=== PATIENT | female | born 1960 | race Caucasian/White ===

== ENCOUNTER 2018-07-03 10:26 | Inpatient (IN) | payer BC ==
[~2018-07-03] VITALS: Ht 162.6 cm; Wt 105.2 kg
[2018-07-03] MEDS ORDERED: CEFAZOLIN SOD 1 GM/ ISO 50 ML PREMIX IV ONE (10:45)
[2018-07-03] MEDS ORDERED: CEFAZOLIN SOD 2 GM in D5W 50 ML IV ONE (11:45)
[2018-07-03] MEDS ORDERED: POLYMYXIN 500,000/BACIT.10,000 UNITS in NS IRR 1 L IR ONE (12:02)
[2018-07-03] MEDS ORDERED: LR 1,000 ML IV SCH (13:06)
[2018-07-03] MEDS ORDERED: HYDROmorphone 2 MG/ML VIAL IVP PRN ×2 (13:15)
[2018-07-03] MEDS ORDERED: HYDROmorphone 1 MG INJ. 1 MG/ML AMPUL IVP PRN ×2 (13:15→17:00)
[2018-07-03] MEDS ORDERED: MEPERIDINE HCL/PF 25 MG/ML DISP.SYRIN IVP PRN (13:15)
[2018-07-03] MEDS ORDERED: ONDANSETRON HCL 4 MG/2 ML VIAL IVP PRN (14:00)
[2018-07-03] MEDS ORDERED: ACETAMINOPHEN 325 MG TABLET PO PRN (14:00)
[2018-07-03] MEDS ORDERED: HYDROcodone/ACETAMIN 5-325 MG TAB (NORCO/ VICODIN) PO PRN ×2 (17:00)
[2018-07-03] MEDS: CEFAZOLIN 1 GM IVPB PREMIX 50 ML IV SCH ×2 (17:48→23:12)
[2018-07-03] MEDS: D5/0.45 NS 1,000 ML IV SCH ×2 (18:09→23:12)
[2018-07-03 18:41] VITALS: BP_SYST 128
[2018-07-03 20:00] VITALS: BP_SYST 107
[2018-07-03] MEDS: FAMOTIDINE PF 20 MG/2 ML VIAL IVP SCH (20:26)
[2018-07-03] MEDS ORDERED: GLU500 PO (21:38)
[2018-07-03] MEDS ORDERED: NEU300 PO (21:38)
[2018-07-03] MEDS ORDERED: TRIA1TAB98 PO (21:58)
[2018-07-04 01:34] VITALS: BP_SYST 99
[2018-07-04 08:00] VITALS: BP_SYST 107
[2018-07-04] MEDS ORDERED: GABAPENTIN 300 MG CAPSULE PO SCH (09:00)
[2018-07-04] MEDS ORDERED: metFORMIN HCL 500 MG TABLET PO SCH (09:00)
[2018-07-04] MEDS ORDERED: ENOXAPARIN SODIUM 30 MG/0.3 ML SYRINGE SUBCUT SCH (09:00)
[2018-07-04] MEDS: FAMOTIDINE PF 20 MG/2 ML VIAL IVP SCH (09:42)
[2018-07-04] MEDS: D5/0.45 NS 1,000 ML IV SCH (09:53)
[2018-07-04] MEDS ORDERED: MIDAZOLAM HCL 5 MG/5 ML VIAL IVP ONE (12:00)
[2018-07-04] MEDS ORDERED: BUPIVACAINE LIPOSOME/PF 266 MG/20 ML VIAL INFIL ONE (12:00)
[2018-07-04] MEDS ORDERED: KETOROLAC TROMETHAMINE 30 MG VIAL IVP ONE (12:00)
[2018-07-04] MEDS ORDERED: PROPOFOL 200MG/ 20ML VIAL (DIPRIVAN) IV ONE (12:00)
[2018-07-04] MEDS ORDERED: SEVOFLURANE 15 MIN GAS INH ONE (12:00)
[2018-07-04] MEDS ORDERED: fentaNYL CITRATE 250 MCG/5 ML AMP IV ONE (12:00)
[2018-07-04] MEDS ORDERED: NS 1000 ML IV.SOLN IV ONE (12:00)
[2018-07-04] MEDS ORDERED: GLYCOPYRROLATE 1 MG/5 ML VIAL IJ ONE (12:00)
[2018-07-04] MEDS ORDERED: LR 1,000 ML IV.SOLN IV ONE (12:00)
[2018-07-04] MEDS ORDERED: ONDANSETRON HCL 4 MG/2 ML VIAL IVP ONE (12:00)
[2018-07-04] MEDS ORDERED: DEXAMETHASONE SOD PHOSPHATE 20 MG/5 ML VIAL IVP ONE (12:00)
[2018-07-04] MEDS ORDERED: BUPIVACAINE /PF 0.25% 30 ML VIAL INJ ONE (12:00)
[2018-07-04] MEDS ORDERED: ROCURONIUM BROMIDE 10 MG/ML (ZEMURON) IV ONE (12:00)
[2018-07-04 12:58] VITALS: BP_SYST 91
[2018-07-04] MEDS ORDERED: D5/0.45 NS 1,000 ML IV SCH (13:32)
[2018-07-04] MEDS ORDERED: HYDROcodone/ACETAMIN 5-325 MG TAB (NORCO/ VICODIN) PO PRN ×2 (13:45)
[2018-07-04] MEDS ORDERED: HYDROmorphone 1 MG INJ. 1 MG/ML AMPUL IVP PRN (13:45)
[2018-07-04 13:53] VITALS: BP_SYST 107
[2018-07-04] MEDS ORDERED: TYC3 PO (14:05)
== END 2018-07-04 14:25 | disposition home or self-care (01) | DRG 337 ==
LOC: SMU 10:26
PROVIDERS: ADMIT Colon & Rectal Surgery; ATTEND Colon & Rectal Surgery
PROC: 0DN80ZZ Release Small Intestine, Open Approach (ICD-10-PCS; 2018-07-03)
PROC: 0WUF0JZ Supplement Abdominal Wall with Synthetic Substitute, Open Approach (ICD-10-PCS; principal; 2018-07-03 12:00)
DX: K43.0 Incisional hernia with obstruction, without gangrene (principal); K66.0 Peritoneal adhesions (postprocedural) (postinfection); E66.01 Morbid (severe) obesity due to excess calories; G47.33 Obstructive sleep apnea (adult) (pediatric); N18.3 Chronic kidney disease, stage 3 (moderate); E11.22 Type 2 diabetes mellitus with diabetic chronic kidney disease; I12.9 Hypertensive chronic kidney disease with stage 1 through stage 4 chronic kidney disease, or unspecified chronic kidney disease; E78.5 Hyperlipidemia, unspecified; Z85.42 Personal history of malignant neoplasm of other parts of uterus; Z90.710 Acquired absence of both cervix and uterus; Z68.39 Body mass index [BMI] 39.0-39.9, adult; Z79.899 Other long term (current) drug therapy; Z79.4 Long term (current) use of insulin
CPT/HCPCS: 87081; 88302; 94760; C9290; J0690; J1100; J1650; J1885; J2250; J2405; J2704; J3010; J3490; J7030; J7060; J7120